=== PATIENT | male | born 1970 | race Caucasian/White ===

== ENCOUNTER 2021-08-03 08:16 | Emergency (ER) | payer SELFPAY ==
[~2021-08-03] VITALS: Ht 180.3 cm; Wt 95.2 kg
[2021-08-03] MEDS ORDERED: FAMOTIDINE 20MG/2ML IV (PEPCID) IV STA (08:31)
--- NOTE | 2021-08-03 08:36 | ED Abdominal Pain ---
General Chief Complaint: Abdominal/GI Problems Stated Complaint: CHEST PAIN Nursing Triage Note: PT AMB TO [facility] 5 WITH COMPLAINT OF ABD PAIN. STATES PAIN STARTED AROUND 0200 THIS MORNING. HAS VOMITED 3 TIMES. WAS SENT BY [facility] FOR FURTHER EVALUATION. Source of Information: Patient Exam Limitations: No Limitations (MAGALY GOLD STUDENT) History of Present Illness Date Seen by Provider: Aug 03, 2021 Time Seen by Provider: 08:25 Initial Comments Mr. Cervantes is a 50yo male with PMH Ulcerative colitis that presents to ED today due to Upper abdominal pain. He initially went to walk-in care but was sent to ED from there. States that about 0200 this morning he had a pain in his epigastric region. Pain is a 7, sharp paion that radiates into his back. He has had vomiting x3 with this but denies fevers or other GI symptoms. Has taken ibuprofen without much relief. Pain is worse when he tries to lay down. He is on maintenance medication for his UC. No significant surgical history, states he drinks a couple times a week. (MAGALY GOLD STUDENT) Allergies and Home Medications Allergies Coded Allergies: No Known Drug Allergies (Unverified , 08/03/21) Patient Home Medication List Home Medication List Reviewed: Yes (JOAQUIN LOCKHART MD) Hydrocodone/Acetaminophen (Hydrocodone-Acetamin 5-325 mg) 1 Each Tablet, 1 TAB PO Q4H PRN for PAIN-MODERATE (5-7) Prescribed by: JOAQUIN JUNG on 08/03/21 1031 Omeprazole (Omeprazole) 20 Mg Capsule.dr, 20 MG PO BID Prescribed by: JOAQUIN JUNG on 08/03/21 1030 Ondansetron (Ondansetron Odt) 4 Mg Tab.rapdis, 4 MG SL Q4H PRN for NAUSEA/VOMITING Prescribed by: JOAQUIN JUNG on 08/03/21 1030 Review of Systems Review of Systems Constitutional: No chills, No fever Respiratory: Denies Shortness of Air, Denies Wheezing Cardiovascular: Denies Chest Pain, Denies Edema Gastrointestinal: Abdominal Pain (epigastric); Denies Constipated, Denies Diarrhea; Nausea; Denies Rectal Bleeding; Vomiting Genitourinary: Denies Hematuria; Other (no dysuria) Musculoskeletal: No joint pain, No joint swelling Skin: No lesions, No rash Psychiatric/Neurological: Denies Headache, Denies Numbness (MAGALY GOLD [employer] STUDENT) Past Xbuhgbx-Ihhysb-Ydzpdi Hx Patient Social History Tobacco Use?: No Use of E-Cig and/or Vaping dev: No Substance use?: No Alcohol Use?: Yes Alcohol Frequency: Couple times a week Pt feels they are or have been: No (MAGALY GOLD STUDENT) Immunizations Up To Date First/Initial COVID19 Vaccinat: 2020 Second COVID19 Vaccination Jorge: 2020 (MAGALY GOLD STUDENT) Past Medical History Surgery/Hospitalization HX: ulcerative colitis (MAGALY GOLD STUDENT) Surgeries: No Respiratory: No Cardiac: No Neurological: No Genitourinary: No Gastrointestinal: Yes Musculoskeletal: No Endocrine: No HEENT: No Cancer: No Psychosocial: No Integumentary: No (JOAQUIN LOCKHART MD) Physical Exam Vital Signs Vital Signs - First Documented 08/03/21 08:22 Pulse 73 Resp 16 B/P (MAP) 162/102 (122) Pulse Ox 99 O2 Delivery Room Air (JOAQUIN LOCKHART MD) Vital Signs Capillary Refill : Less Than 3 Seconds (MAGALY GOLD STUDENT) Height/Weight/BMI Height: '" Weight: lbs. oz. kg; 29.00 BMI Method: General Appearance: WD/WN, mild distress (discomfort) Respiratory: chest non-tender, lungs clear, normal breath sounds Cardiovascular: normal peripheral pulses, regular rate, rhythm, no edema, no murmur Peripheral Pulses: 2+ Radial Pulses (R), 2+ Radial Pulses (L) Gastrointestinal: normal bowel sounds, soft; No distended, No guarding; tenderness (mild tenderness in RUQ, More tenderness in epigastric and LUQ) Extremities: non-tender, no pedal edema, no calf tenderness Neurologic/Psychiatric: alert, normal mood/affect, oriented x 3 Skin: normal color, warm/dry (MAGALY GOLD STUDENT) Progress/Results/Core Measures Results/Orders Lab Results Laboratory Tests Test 08/03/21 08:29 Range/Units White Blood Count 14.4 H 4.3-11.0 10^3/uL Red Blood Count 5.68 H 4.30-5.52 10^6/uL Hemoglobin 16.6 13.3-17.7 g/dL Hematocrit 50 40-54 % Mean Corpuscular Volume 88 80-99 fL Mean Corpuscular Hemoglobin 29 25-34 pg Mean Corpuscular Hemoglobin Concent 33 32-36 g/dL Red Cell Distribution Width 12.5 10.0-14.5 % Platelet Count 416 H 130-400 10^3/uL Mean Platelet Volume 9.4 9.0-12.2 fL Immature Granulocyte % (Auto) 0 % Neutrophils (%) (Auto) 93 H 42-75 % Lymphocytes (%) (Auto) 4 L 12-44 % Monocytes (%) (Auto) 2 0-12 % Eosinophils (%) (Auto) 0 0-10 % Basophils (%) (Auto) 0 0-10 % Neutrophils # (Auto) 13.4 H 1.8-7.8 10^3/uL Lymphocytes # (Auto) 0.6 L 1.0-4.0 10^3/uL Monocytes # (Auto) 0.2 0.0-1.0 10^3/uL Eosinophils # (Auto) 0.0 0.0-0.3 10^3/uL Basophils # (Auto) 0.1 0.0-0.1 10^3/uL Immature Granulocyte # (Auto) 0.1 0.0-0.1 10^3/uL Neutrophils % (Manual) 94 % Lymphocytes % (Manual) 5 % Monocytes % (Manual) 1 % Blood Morphology Comment NORMAL Sodium Level 141 135-145 MMOL/L Potassium Level 4.1 3.6-5.0 MMOL/L Chloride Level 105 98-107 MMOL/L Carbon Dioxide Level 20 L 21-32 MMOL/L Anion Gap 16 H 5-14 MMOL/L Blood Urea Nitrogen 14 7-18 MG/DL Creatinine 1.03 0.60-1.30 MG/DL Estimat Glomerular Filtration Rate 88 BUN/Creatinine Ratio 14 Glucose Level 138 H 70-105 MG/DL Calcium Level 9.3 8.5-10.1 MG/DL Corrected Calcium 8.9 8.5-10.1 MG/DL Total Bilirubin 1.1 H 0.1-1.0 MG/DL Aspartate Amino Transf (AST/SGOT) 18 5-34 U/L Alanine Aminotransferase (ALT/SGPT) 24 0-55 U/L Alkaline Phosphatase 92 40-136 U/L C-Reactive Protein High Sensitivity 0.50 0.00-0.50 MG/DL Total Protein 7.9 6.4-8.2 GM/DL Albumin 4.5 3.2-4.5 GM/DL Lipase 16 8-78 U/L (JOAQUIN LOCKHART MD) My Orders Orders - JOAQUIN LOCKHART MD Cbc With Automated Diff (08/03/21 08:31) Comprehensive Metabolic Panel (08/03/21 08:31) Hs C Reactive Protein (08/03/21 08:31) Lipase (08/03/21 08:31) Ed Iv/Invasive Line Start (08/03/21 08:31) Lactated Ringers (Lr 1000 Ml Iv Solution (08/03/21 08:45) Ondansetron Injection (Zofran Injectio (08/03/21 08:45) Lidocaine 2% Viscous 15 Ml (Xylocaine Vi (08/03/21 08:45) Antacid Suspension (Mylanta Suspension (08/03/21 08:45) Famotidine Injection (Pepcid Injection) (08/03/21 08:31) Manual Differential (08/03/21 08:29) Fentanyl Inj (Sublimaze Injection) (08/03/21 09:15) Pantoprazole Injection (Protonix Injecti (08/03/21 09:15) Fentanyl Inj (Sublimaze Injection) (08/03/21 10:15) (JOAQUIN LOCKHART MD) Medications Given in ED Current Medications Medications Dose Ordered Sig/Pato Route Start Time Stop Time Status Last Admin Dose Admin Al Hydrox/Mg Hydrox/Simethicone 30 ml ONCE ONCE PO 08/03/21 08:45 08/03/21 08:46 DC 08/03/21 08:46 30 ML Fentanyl Citrate 50 mcg ONCE ONCE IVP 08/03/21 09:15 08/03/21 09:16 DC 08/03/21 09:24 50 MCG Fentanyl Citrate 50 mcg ONCE ONCE IVP 08/03/21 10:15 08/03/21 10:16 DC 08/03/21 10:19 50 MCG Lactated Ringer's 1,000 ml @ 0 mls/hr Q0M ONCE IV 08/03/21 08:45 08/03/21 08:46 DC 08/03/21 08:46 0 MLS/HR Lidocaine HCl 15 ml ONCE ONCE PO 08/03/21 08:45 08/03/21 08:46 DC 08/03/21 08:46 15 ML Ondansetron HCl 8 mg ONCE ONCE IVP 08/03/21 08:45 08/03/21 08:46 DC 08/03/21 08:46 8 MG Pantoprazole 40 mg ONCE ONCE IV 08/03/21 09:15 08/03/21 09:16 DC 08/03/21 09:23 40 MG (JOAQUIN LOCKHART MD) Vital Signs/I&O 08/03/21 08/03/21 08:22 10:37 Pulse 73 71 Resp 16 16 B/P (MAP) 162/102 (122) 155/98 Pulse Ox 99 98 O2 Delivery Room Air Room Air (JOAQUIN LOCKHART MD) Blood Pressure Mean: 122 Progress Progress Note #1: Time: 09:17 Progress Note Patient was treated with Zofran, Pepcid, and GI cocktail. He reports nausea has resolved, but there has been little improvement in the epigastric and left upper quadrant pain. He is additionally being treated with fentanyl and Protonix. We will monitor how he does over the next 30 minutes or so. IV fluids are infusing. Labs were relatively unremarkable except for minor elevation in WBC which is presumed to be secondary to vomiting. Progress Note #2: Time: 10:22 Progress Note Patient was experiencing some rebound pain after the fentanyl. He was given a second dose. We discussed further options for evaluating his pain. He was offered a CT scan. We discussed risks and benefits of CT. He declined CT at this time citing finances as he is uninsured. I advised him I would be willing to discharge him with medications for symptomatic care as long as he commits to returning of symptoms worsen. Patient was not septic or toxic in appearance. Labs and vitals did not suggest significant infection. He was prescribed Zofran, a small quantity of hydrocodone, and omeprazole. See discharge instructions for further discussion. (JOAQUIN LOCKHART MD) Departure Impression Primary Impression: Upper abdominal pain Additional Impression: Nausea & vomiting Qualified Codes: R11.2 - Nausea with vomiting, unspecified Disposition: 01 HOME, SELF-CARE Condition: Stable Departure-Patient Inst. Decision time for Depature: 10:13 (JOAQUIN LOCKHART MD) Referrals: NO,LOCAL PHYSICIAN (PCP/Family) Primary Care Physician Patient Instructions: Abdominal Pain, Adult ED Add. Discharge Instructions: The exact cause of your abdominal pain and nausea is uncertain. Possible causes could include ulcer, gastritis and esophagitis triggered by viral illness, flareup of ulcerative colitis, etc. Use Zofran (ondansetron) as prescribed for nausea and vomiting. Use omeprazole twice a daily for at least 2 weeks to reduce stomach acid and acid reflux. Adhere to a noncarbonated clear liquid diet for the remainder of the day. If you are improved tomorrow, gradually advance your diet with small quantities of bland food as tolerated. Avoid the following: Eating large meals, eating close to bedtime, caffeine, carbonation, chocolate, citrus fruits and juices, tomato products, mints, alcohol, tobacco, NSAID medications such as ibuprofen or naproxen, fatty and greasy foods, and anything else you know irritates your stomach. Use hydrocodone as prescribed for pain. Return to the ER if you have worsening symptoms or develop new symptoms such as fever despite following the instructions above. Call with questions or concerns. Follow-up with a primary care provider or your finish opener as soon as possible. Call tomorrow morning for an appointment. All discharge instructions reviewed with patient and/or family. Voiced un derstanding. Scripts Hydrocodone/Acetaminophen (Hydrocodone-Acetamin 5-325 mg) 1 Each Tablet 1 TAB PO Q4H PRN for PAIN-MODERATE (5-7), #6 TAB Prov: JOAQUIN LOCKHART MD 08/03/21 Ondansetron (Ondansetron Odt) 4 Mg Tab.rapdis 4 MG SL Q4H PRN for NAUSEA/VOMITING, #10 TAB Prov: JOAQUIN LOCKHART MD 08/03/21 Omeprazole (Omeprazole) 20 Mg Capsule.dr 20 MG PO BID, #60 CAP Prov: JOAQUIN LOCKHART MD 08/03/21 Work/School Note: Work Release Form Date Seen in the Emergency Department: Aug 03, 2021 Return to Work: Aug 05, 2021 Restrictions: Return-No Fever (24hrs), Return-No Vomiting(24hrs) Medical Student Attestation and Attending Note: I have personally interviewed and examined this patient along with Magaly Gold, MS 4. I have reviewed student documentation including history, physical, and assessments. I agree with the documentation except where otherw ise noted. Exam: General: Alert, oriented, mild acute distress, well developed HEENT: Normocephalic and atraumatic Heart: Regular rate and rhythm without murmur Lungs: Clear to auscultation bilaterally with normal effort Abdomen: Soft, tender in the epigastrium and left upper quadrant, nondistended, normal bowel sounds Neuropsych: Alert, oriented, no focal deficits Skin: Warm and dry without rashes (JOAQUIN LOCKHART MD) Copy Copies To 1: FEDERICO ZHANG DEREK MED STUDENT Aug 03, 2021 08:36 JOAQUIN LOCKHART MD Aug 03, 2021 09:18
[2021-08-03] MEDS ORDERED: ANTACID SUSP 30 ML UDC (MYLANTA) PO ONE (08:45)
[2021-08-03] MEDS ORDERED: LACTATED RINGERS 1,000 ML IV ONE (08:45)
[2021-08-03] MEDS ORDERED: LIDOCAINE 2% VISCOUS 15 ML UDC PO ONE (08:45)
[2021-08-03] MEDS ORDERED: ONDANSETRON 4 MG/2 ML (SDV) Z0FRAN IVP ONE (08:45)
[2021-08-03 08:50] LABS: ALBUMIN 4.5 GM/DL (3.2-4.5); BASOPHILS # (AUTO) 0.1 10^3/uL (0.0-0.1); BASOPHILS % (AUTO) 0 % (0-10); EOSINOPHILS % (AUTO) 0 % (0-10); HEMATOCRIT 50 % (40-54); HEMOGLOBIN 16.6 g/dL (13.3-17.7); LYMPHOCYTES # (AUTO) 0.6 10^3/uL (1.0-4.0); LYMPHOCYTES % (AUTO) 4 % (12-44); MEAN CORPUSCULAR HEMOGLOBIN 29 pg (25-34); MEAN CORPUSCULAR HGB CONC 33 g/dL (32-36); MEAN CORPUSCULAR VOLUME 88 fL (80-99); MEAN PLATELET VOLUME 9.4 fL (9.0-12.2); MONOCYTES # (AUTO) 0.2 10^3/uL (0.0-1.0); MONOCYTES % (AUTO) 2 % (0-12); NEUTROPHILS # (AUTO) 13.4 10^3/uL (1.8-7.8); NEUTROPHILS % (AUTO) 93 % (42-75); PLATELET COUNT 416 10^3/uL (130-400); POTASSIUM 4.1 MMOL/L (3.6-5.0); WHITE BLOOD COUNT 14.4 10^3/uL (4.3-11.0)
[2021-08-03 08:51] LABS: CALCIUM 9.3 MG/DL (8.5-10.1)
[2021-08-03 08:53] LABS: TOTAL PROTEIN 7.9 GM/DL (6.4-8.2)
[2021-08-03 08:54] LABS: BILIRUBIN,TOTAL 1.1 MG/DL (0.1-1.0)
[2021-08-03 08:56] LABS: CREATININE SERUM 1.03 MG/DL (0.60-1.30)
[2021-08-03 09:09] LABS: LYMPHOCYTES % (MANUAL) 5 %; MONOCYTES % (MANUAL) 1 %; NEUTROPHILS % (MANUAL) 94 %; RBC MORPH NORMAL
[2021-08-03] MEDS ORDERED: fentaNYL INJ 100 MCG/2 ML AMP IVP ONE ×2 (09:15→10:15)
[2021-08-03] MEDS ORDERED: PANTOPRAZOLE 40 MG (PROTONIX) VIAL IV ONE (09:15)
[2021-08-03] MEDS ORDERED: ONDA4TAB11 SL ×2 (10:22→10:30)
[2021-08-03] MEDS ORDERED: ACHD5005 PO ×2 (10:22→10:30)
[2021-08-03] MEDS ORDERED: OMEP20CA18 PO ×2 (10:22→10:30)
[2021-08-03 10:37] VITALS: BP 155/98
== END 2021-08-03 10:37 | disposition home or self-care (01) ==
LOC: EDUNIT# 08:16 → ER 08:18
DX: R10.11 Right upper quadrant pain (principal); R11.2 Nausea with vomiting, unspecified
CPT/HCPCS: 36415; 80053; 83690; 85007; 85027; 86141